=== PATIENT | female | born 1940 | race Two or more races ===

== ENCOUNTER → 2017-12-10 | Outpatient (CLI) | payer OTHER ==
[~2017-12-10] MED LIST: INTEGRA PLUS C1 EACH PO; INTEGRA PLUS CAPSULE PO; OXYC1TAB9 PO; PLAVIX75 MG PO; SEPTRA DS TABLE1 TAB PO; SYNTHROID100 MCG PO; SYNTHROID50 MCG PO; XARELTO 10MG PO; XARELTO10 MG PO
== END | disposition home or self-care (01) ==
LOC: SONOGRAMA 12:30
DX: C73 Malignant neoplasm of thyroid gland (principal); E89.0 Postprocedural hypothyroidism